=== PATIENT | female | born 1990 | race Hispanic/Latino ===

== ENCOUNTER 2017-05-03 19:47 | Emergency (ER) | payer OTHER ==
[2017-05-03 20:53] LABS: BASOPHILS % (AUTO) 0.4 % (0.0-5.0); HEMATOCRIT 37.2 % (36-48); LYMPHOCYTES % (AUTO) 4.7 % (21.0-51.0); MEAN CORPUSCULAR HGB CONC 32.7 g/dL (32.0-36.0); MEAN CORPUSCULAR VOLUME 79.5 fL (79-99); MONOCYTES % (AUTO) 7.4 % (3.0-13.0); NEUTROPHILS % (AUTO) 87.5 % (40.0-77.0); NUCLEATED RED BLOOD CELLS 0.1 % (0.0-0.19); PLATELET COUNT (AUTO) 310 K/uL (130-400); RED BLOOD CELL COUNT(AUTO) 4.68 MIL/uL (4.00-5.50); RED CELL DISTRIBUTION WIDTH 14.6 % (11.0-15.5); WHITE BLOOD COUNT (AUTO) 11.9 K/uL (4.8-10.8)
[2017-05-03 20:58] LABS: APPEARANCE,URINE Cloudy (CLEAR); BILIRUBIN,URINE Negative (NEGATIVE); COLOR,URINE Yellow (YELLOW); GLUCOSE, URINE (UA) Negative (NEGATIVE); KETONES,URINE Negative (NEGATIVE); LEUKOCYTE ESTERASE ,URINE Large (NEGATIVE); NITRATE,URINE Negative (NEGATIVE); OCCULT BLOOD,URINE Moderate (NEGATIVE); PROTEIN,URINE Trace (NEGATIVE)
[2017-05-03 21:01] LABS: CREATININE 0.8 mg/dL (0.5-1.5); POTASSIUM 3.9 mmol/L (3.5-5.1)
[2017-05-03 21:02] LABS: HCG,QUAL RESULT NEGATIVE (NEGATIVE)
[2017-05-03 21:06] LABS: ALBUMIN 3.7 g/dL (3.5-5.0); BILIRUBIN,TOTAL 0.4 mg/dL (0.2-1.0); TOTAL PROTEIN, SERUM 8.4 g/dL (6.0-8.3)
[2017-05-03] MEDS ORDERED: IBUPROFEN 400 MG TABLET ONE (21:09)
[2017-05-03 21:13] LABS: BACTERIA,URINE Few /HPF (None Seen); MUCUS,URINE Few LPF (None Seen); RBC,URINE 0-1 /HPF (0-1); SQUAMOUS EPITHELIAL CELL,UR Many /LPF (0-2)
[2017-05-03] MEDS ORDERED: CEFTRIAXONE SODIUM 1 GM ONE (22:00)
[2017-05-03] MEDS ORDERED: LIDOCAINE HCL-MPF 1% 2ML VIAL ONE (22:00)
[2017-05-03] MEDS ORDERED: AZITHROMYCIN 250 MG TABLET PO ONE ×2 (22:01→22:08)
[2017-05-06 14:15] LABS: CHLAMYDIA DNA N.A.AMPLIFY Negative (Negative)
== END 2017-05-03 22:35 | disposition home or self-care (01) ==
LOC: EDH 19:47
DX: N10 Acute pyelonephritis (principal); N73.9 Female pelvic inflammatory disease, unspecified; Z87.891 Personal history of nicotine dependence
CPT/HCPCS: 36415; 80053; 81001; 81025; 85025; 87210; 87486; 87797; 87804 ×2; 96372; 99284; J0696; J3490

== ENCOUNTER 2017-05-06 11:03 | Emergency (ER) | payer OTHER | END 2017-05-06 12:04 | disposition home or self-care (01) | LOC: EDH 11:03 | DX: M54.5 Low back pain (principal); Z98.890 Other specified postprocedural states | CPT/HCPCS: 99281 ==

== ENCOUNTER 2017-08-18 18:33 | Emergency (ER) | payer OTHER ==
[2017-08-18] MEDS ORDERED: CEFTRIAXONE SODIUM 500 MG VIAL ONE (19:57)
[2017-08-18] MEDS ORDERED: LIDOCAINE HCL-MPF 1% 2ML VIAL ONE (19:57)
[2017-08-18] MEDS ORDERED: AZITHROMYCIN 250 MG TABLET PO ONE (19:58)
[2017-08-18 20:04] LABS: BASOPHILS % (AUTO) 0.5 % (0.0-5.0); EOSINOPHILS % (AUTO) 1.2 % (0.0-8.0); HEMATOCRIT 34.6 % (36-48); LYMPHOCYTES % (AUTO) 20.4 % (21.0-51.0); MEAN CORPUSCULAR HEMOGLOBIN 26.1 pg (27.0-33.0); MEAN CORPUSCULAR HGB CONC 33.7 g/dL (32.0-36.0); MEAN CORPUSCULAR VOLUME 77.6 fL (79-99); MONOCYTES % (AUTO) 7.6 % (3.0-13.0); NEUTROPHILS % (AUTO) 70.3 % (40.0-77.0); NUCLEATED RED BLOOD CELLS 0.1 % (0.0-0.19); PLATELET COUNT (AUTO) 328 K/uL (130-400); RED BLOOD CELL COUNT(AUTO) 4.46 MIL/uL (4.00-5.50); RED CELL DISTRIBUTION WIDTH 15.3 % (11.0-15.5); WHITE BLOOD COUNT (AUTO) 7.6 K/uL (4.8-10.8)
[2017-08-18 20:17] LABS: CREATININE 0.6 mg/dL (0.5-1.5)
[2017-08-18 20:21] LABS: HCG,QUAL RESULT NEGATIVE (NEGATIVE)
[2017-08-18 20:22] LABS: APPEARANCE,URINE Clear (CLEAR); BILIRUBIN,URINE Negative (NEGATIVE); COLOR,URINE Yellow (YELLOW); GLUCOSE, URINE (UA) Negative (NEGATIVE); KETONES,URINE Negative (NEGATIVE); LEUKOCYTE ESTERASE ,URINE Small (NEGATIVE); NITRATE,URINE Negative (NEGATIVE); OCCULT BLOOD,URINE Negative (NEGATIVE); PH,URINE 6.5 (5.0-8.0); PROTEIN,URINE Negative (NEGATIVE)
[2017-08-18 20:22] LABS: ALBUMIN 3.5 g/dL (3.5-5.0); BILIRUBIN,TOTAL 0.3 mg/dL (0.2-1.0); TOTAL PROTEIN, SERUM 7.5 g/dL (6.0-8.3)
[2017-08-18 20:32] LABS: BACTERIA,URINE None Seen /HPF (None Seen); MUCUS,URINE Few LPF (None Seen); RBC,URINE None Seen /HPF (0-1); TRANSITIONAL EPI CELLS,URINE Few /HPF (None Seen); WBC,URINE 0-1 /HPF (0-1)
== END 2017-08-18 21:47 | disposition home or self-care (01) ==
LOC: EDH 18:33
DX: N89.8 Other specified noninflammatory disorders of vagina (principal); Z90.49 Acquired absence of other specified parts of digestive tract; Z98.890 Other specified postprocedural states
CPT/HCPCS: 36415; 80053; 81001; 81025; 85025; 87486; 87797; 96372; 99284; J0696; J3490

== ENCOUNTER 2018-03-12 09:03 | Emergency (ER) | payer MEDICAID ==
[2018-03-12] MEDS ORDERED: ONDANSETRON HCL 4 MG/2 ML VIAL ONE (09:54)
[2018-03-12] MEDS ORDERED: SODIUM CHLORIDE 0.9% 1000ML 1,000 ML IV ONE (09:54)
[2018-03-12 10:13] LABS: APPEARANCE,URINE Clear (CLEAR); BILIRUBIN,URINE Moderate (NEGATIVE); COLOR,URINE Dark Yellow (YELLOW); GLUCOSE, URINE (UA) Negative (NEGATIVE); KETONES,URINE >=160 mg/dL (NEGATIVE); LEUKOCYTE ESTERASE ,URINE Small (NEGATIVE); NITRATE,URINE Negative (NEGATIVE); OCCULT BLOOD,URINE Nonhemolyzed Trace (NEGATIVE); PH,URINE 6.5 (5.0-8.0); PROTEIN,URINE POS 1+ (NEGATIVE)
[2018-03-12 10:17] LABS: BASOPHILS % (AUTO) 0.2 % (0.0-5.0); EOSINOPHILS % (AUTO) 0.4 % (0.0-8.0); HEMATOCRIT 38.9 % (36-48); LYMPHOCYTES % (AUTO) 11.2 % (21.0-51.0); MEAN CORPUSCULAR HEMOGLOBIN 27.2 pg (27.0-33.0); MEAN CORPUSCULAR HGB CONC 33.3 g/dL (32.0-36.0); MEAN CORPUSCULAR VOLUME 81.7 fL (79-99); MONOCYTES % (AUTO) 6.9 % (3.0-13.0); NEUTROPHILS % (AUTO) 81.3 % (40.0-77.0); PLATELET COUNT (AUTO) 285 K/uL (130-400); RED BLOOD CELL COUNT(AUTO) 4.76 MIL/uL (4.00-5.50); RED CELL DISTRIBUTION WIDTH 15.5 % (11.0-15.5); WHITE BLOOD COUNT (AUTO) 7.5 K/uL (4.8-10.8)
[2018-03-12 10:21] LABS: BACTERIA,URINE Few /HPF (None Seen); MUCUS,URINE Moderate LPF (None Seen); RBC,URINE 0-1 /HPF (0-1); SQUAMOUS EPITHELIAL CELL,UR Few /HPF (0-2); WBC,URINE 0-1 /HPF (0-1)
[2018-03-12 10:22] LABS: AMPHET/METH SCREEN,URINE NEGATIVE (NEGATIVE); BARBITURATE SCREEN, URINE NEGATIVE (NEGATIVE); BENZODIAZEPINES SCREEN,URINE NEGATIVE (NEGATIVE); CANNABINOID SCREEN,URINE NEGATIVE (NEGATIVE); COCAINE SCREEN,URINE NEGATIVE (NEGATIVE); OPIATE SCREEN,URINE NEGATIVE (NEGATIVE); PHENCYCLIDINE SCREEN,URINE NEGATIVE (NEGATIVE)
[2018-03-12 10:23] LABS: CREATININE 0.6 mg/dL (0.5-1.5); POTASSIUM 3.3 mmol/L (3.5-5.1)
[2018-03-12 10:49] LABS: ALBUMIN 3.3 g/dL (3.5-5.0); BILIRUBIN,DIRECT 0.1 mg/dL (0.0-0.3); BILIRUBIN,TOTAL 0.5 mg/dL (0.2-1.0); TOTAL PROTEIN, SERUM 7.9 g/dL (6.0-8.3)
== END 2018-03-12 12:07 | disposition home or self-care (01) ==
LOC: EDH 09:03
DX: O20.0 Threatened abortion (principal); O21.8 Other vomiting complicating pregnancy; Z79.899 Other long term (current) drug therapy; Z90.49 Acquired absence of other specified parts of digestive tract; Z98.890 Other specified postprocedural states; Z3A.15 15 weeks gestation of pregnancy
CPT/HCPCS: 36415; 80048; 80076; 80305; 81001; 83690; 84702; 85025; 96361; 96374; 99285; J2405; J7030

== ENCOUNTER 2022-08-30 08:04 | Emergency (ER) | payer MEDICAID, OTHER ==
[~2022-08-30] VITALS: Ht 152.4 cm; Wt 90.7 kg
[2022-08-30 08:40] LABS: BASOPHILS % (AUTO) 0.7 % (0.0-5.0); EOSINOPHILS % (AUTO) 1.4 % (0.0-8.0); HEMATOCRIT 35.4 % (36-48); MEAN CORPUSCULAR HEMOGLOBIN 24.4 pg (27.0-33.0); MEAN CORPUSCULAR HGB CONC 30.8 g/dL (32.0-36.0); MEAN CORPUSCULAR VOLUME 79.2 fL (79-99); NEUTROPHILS % (AUTO) 71.7 % (40.0-77.0); PLATELET COUNT (AUTO) 338 K/uL (130-400); RED BLOOD CELL COUNT(AUTO) 4.47 MIL/uL (4.00-5.50); WHITE BLOOD COUNT (AUTO) 5.8 K/uL (4.8-10.8)
[2022-08-30 08:47] VITALS: BP 129/72
[2022-08-30 09:09] LABS: APPEARANCE,URINE CLEAR (CLEAR); BILIRUBIN,URINE NEGATIVE (NEGATIVE); COLOR,URINE LIGHT-YELLOW (YELLOW); GLUCOSE, URINE (UA) NEGATIVE (NEGATIVE); KETONES,URINE NEGATIVE (NEGATIVE); LEUKOCYTE ESTERASE ,URINE NEGATIVE Leu/uL (NEGATIVE); NITRATE,URINE NEGATIVE (NEGATIVE); OCCULT BLOOD,URINE NEGATIVE (NEGATIVE); PROTEIN,URINE NEGATIVE (NEGATIVE); UROBILINOGEN,URINE 0.2 mg/dL (0.2-1.0)
[2022-08-30 09:14] LABS: HCG,QUALITATIVE URINE NEGATIVE (NEGATIVE)
[2022-08-30 09:20] LABS: ALBUMIN 3.7 g/dL (3.5-5.0); CREATININE 0.6 mg/dL (0.5-1.5)
[2022-08-30] MEDS ORDERED: FERR15DR PO (09:44)
[2022-08-30 09:48] LABS: THYROID STIMULATING HORMONE 1.63 uIU/mL (0.36-3.74)
== END 2022-08-30 10:12 | disposition home or self-care (01) ==
LOC: EDH 08:04
DX: R53.1 Weakness (principal); D64.9 Anemia, unspecified; Z20.822 Contact with and (suspected) exposure to COVID-19; Z90.49 Acquired absence of other specified parts of digestive tract; Z98.890 Other specified postprocedural states
CPT/HCPCS: 99283; 87635; 84443; 80053; 85025; 87804 ×2; 82948; 82010; 81003; 81025; 36415; C9803

== ENCOUNTER 2023-02-19 09:48 | Emergency (ER) | payer OTHER ==
[~2023-02-19] VITALS: Ht 152.4 cm; Wt 113.4 kg
[~2023-02-19 09:48] MED LIST: FERR15DR PO
[2023-02-19 09:52] VITALS: BP 134/79; PULSE 78; RESP 16; O2SAT 100
[2023-02-19] MEDS ORDERED: ROPI3TAB21 PO (10:19)
[2023-02-19 10:28] LABS: BASOPHILS # (AUTO) 0.05 K/uL (0.00-0.20); BASOPHILS % (AUTO) 0.8 % (0.0-5.0); EOSINOPHILS # (AUTO) 0.07 K/uL (0.00-0.70); EOSINOPHILS % (AUTO) 1.2 % (0.0-8.0); HEMATOCRIT 35.9 % (36-48); IMMATURE GRANULOCYTE ABSOLUTE 0.01 K/uL (0-1); LYMPHOCYTES # (AUTO) 1.3 K/uL (1.0-4.8); LYMPHOCYTES % (AUTO) 21.2 % (21.0-51.0); MEAN CORPUSCULAR HEMOGLOBIN 25.2 pg (27.0-33.0); MEAN CORPUSCULAR HGB CONC 31.2 g/dL (32.0-36.0); MEAN CORPUSCULAR VOLUME 80.9 fL (79-99); MONOCYTES # (AUTO) 0.4 K/uL (0.1-1.0); MONOCYTES % (AUTO) 6.1 % (3.0-13.0); NEUTROPHILS # (AUTO) 4.3 K/uL (1.8-7.7); NEUTROPHILS % (AUTO) 70.5 % (40.0-77.0); PLATELET COUNT (AUTO) 359 K/uL (130-400); RED BLOOD CELL COUNT(AUTO) 4.44 MIL/uL (4.00-5.50); RED CELL DISTRIBUTION WIDTH 14.2 % (11.0-15.5)
[2023-02-19 10:35] LABS: CREATININE 0.6 mg/dL (0.5-1.5)
[2023-02-19] MEDS ORDERED: IBUPROFEN 800 MG TAB PO PRN (11:00)
[2023-02-19] MEDS ORDERED: ROPINIROLE HCL 1 MG TABLET ONE (11:16)
[2023-02-19] MEDS ORDERED: FERS325 PO (11:52)
[2023-02-19] MEDS ORDERED: IBUP-2077 PO (11:52)
[2023-02-19] MEDS ORDERED: FERR325T22 PO (11:52)
[2023-02-19] MEDS ORDERED: ROPINIROLE HCL 1 MG TABLET PO SCH (21:00)
[2023-02-20] MEDS ORDERED: FERROUS SULFATE 325 MG TABLET.DR PO SCH (09:00)
== END 2023-02-19 12:02 | disposition home or self-care (01) ==
LOC: EDH 09:48
DX: G57.11 Meralgia paresthetica, right lower limb (principal); G25.81 Restless legs syndrome; D50.9 Iron deficiency anemia, unspecified; Z79.899 Other long term (current) drug therapy; Z90.49 Acquired absence of other specified parts of digestive tract; Z98.890 Other specified postprocedural states
CPT/HCPCS: 36415; 80048; 85025

== ENCOUNTER 2023-06-11 10:15 | Emergency (ER) | payer OTHER ==
[~2023-06-11] VITALS: Ht 152.4 cm; Wt 117.9 kg
[~2023-06-11 10:15] MED LIST changes: +FERR325T22 PO; +FERS325 PO; +IBUP-2077 PO; +ROPI3TAB21 PO
[2023-06-11 10:41] VITALS: BP 139/61; PULSE 84; RESP 18; O2SAT 100
[2023-06-11 11:19] LABS: INFLUENZA TYPE A Negative For Type A (NEGATIVE); INFLUENZA TYPE B Negative For Type B (NEGATIVE); SARS-CoV-2, RNA, NAAT NEGATIVE SARS CoV-2 (NEGATIVE)
[2023-06-11 11:26] LABS: RAPID GROUP A STREP positive (NEGATIVE)
[2023-06-11] MEDS ORDERED: AMOX500C2 PO (11:33)
[2023-06-11] MEDS: DEXAMETHASONE SOD PHOSPHATE 4 MG/ML 1ML VIAL IM ONE (11:57)
[2023-06-11] MEDS: AMOXICILLIN 500 MG CAPSULE PO ONE (11:58)
[2023-06-11] MEDS: KETOROLAC 30MG VIAL (30MG/ML) IM ONE (11:58)
== END 2023-06-11 12:19 | disposition home or self-care (01) ==
LOC: EDH 10:15
DX: J02.0 Streptococcal pharyngitis (principal); R51.9 Headache, unspecified; R50.9 Fever, unspecified; R07.0 Pain in throat; Z20.822 Contact with and (suspected) exposure to COVID-19; Z79.899 Other long term (current) drug therapy; Z90.49 Acquired absence of other specified parts of digestive tract; Z98.890 Other specified postprocedural states
CPT/HCPCS: 99284; 87635; 87880; 87804 ×2; 96372 ×2; J1100; J1885

== ENCOUNTER 2023-07-31 17:58 | Emergency (ER) | payer OTHER ==
[~2023-07-31] VITALS: Ht 152.4 cm; Wt 113.4 kg
[~2023-07-31 17:58] MED LIST changes: +AMOX500C2 PO
[2023-07-31 18:33] LABS: APPEARANCE,URINE CLOUDY (CLEAR); BILIRUBIN,URINE NEGATIVE (NEGATIVE); COLOR,URINE LIGHT-YELLOW (YELLOW); GLUCOSE, URINE (UA) NEGATIVE (NEGATIVE); KETONES,URINE NEGATIVE (NEGATIVE); LEUKOCYTE ESTERASE ,URINE NEGATIVE Leu/uL (NEGATIVE); NITRATE,URINE NEGATIVE (NEGATIVE); OCCULT BLOOD,URINE NEGATIVE (NEGATIVE); PH,URINE 5.5 (5.0-8.0); PROTEIN,URINE NEGATIVE (NEGATIVE); UROBILINOGEN,URINE 0.2 mg/dL (0.2-1.0)
[2023-07-31 18:47] LABS: ADD UA MICROSCOPIC YES
[2023-07-31 18:52] LABS: SQUAMOUS EPITHELIAL CELL,UR MANY /HPF (0-2)
[2023-07-31 18:53] LABS: BASOPHILS # (AUTO) 0.06 K/uL (0.00-0.20); BASOPHILS % (AUTO) 0.7 % (0.0-5.0); EOSINOPHILS # (AUTO) 0.18 K/uL (0.00-0.70); EOSINOPHILS % (AUTO) 2.1 % (0.0-8.0); IMMATURE GRANULOCYTE ABSOLUTE 0.03 K/uL (0-1); LYMPHOCYTES # (AUTO) 1.9 K/uL (1.0-4.8); MEAN CORPUSCULAR HEMOGLOBIN 25.4 pg (27.0-33.0); MEAN CORPUSCULAR HGB CONC 31.5 g/dL (32.0-36.0); MEAN CORPUSCULAR VOLUME 80.6 fL (79-99); MONOCYTES # (AUTO) 0.5 K/uL (0.1-1.0); MONOCYTES % (AUTO) 6.2 % (3.0-13.0); NEUTROPHILS # (AUTO) 5.9 K/uL (1.8-7.7); NEUTROPHILS % (AUTO) 68.6 % (40.0-77.0); PLATELET COUNT (AUTO) 385 K/uL (130-400); RED BLOOD CELL COUNT(AUTO) 4.22 MIL/uL (4.00-5.50); RED CELL DISTRIBUTION WIDTH 14.8 % (11.0-15.5); WHITE BLOOD COUNT (AUTO) 8.5 K/uL (4.8-10.8)
[2023-07-31 19:05] LABS: CREATININE 0.6 mg/dL (0.5-1.0); POTASSIUM 3.9 mmol/L (3.5-5.1)
[2023-07-31 19:11] LABS: ALBUMIN 3.3 g/dL (3.5-5.0); BILIRUBIN,TOTAL 0.3 mg/dL (0.2-1.0); TOTAL PROTEIN, SERUM 7.2 g/dL (6.0-8.3)
[2023-07-31 19:42] VITALS: BP 127/74; PULSE 70; RESP 18; O2SAT 98
[2023-07-31 19:42] LABS: INR <= 0.93 (0.85-1.15); PROTHROMBIN TIME 10.3 SEC (9.6-11.6)
[2023-07-31 19:56] LABS: B-TYPE NATRIURETIC PEPTIDE 9 pg/mL (0-100)
[2023-07-31] MEDS: ASPIRIN 325MG TAB PO ONE (20:08)
== END 2023-07-31 22:19 | disposition home or self-care (01) ==
LOC: EDH 17:58
DX: R07.89 Other chest pain (principal); F41.9 Anxiety disorder, unspecified; Z90.49 Acquired absence of other specified parts of digestive tract; Z79.899 Other long term (current) drug therapy; Z98.890 Other specified postprocedural states
CPT/HCPCS: 36415; 71045; 80053; 81001; 83880; 84484; 85025; 85610; 93005

== ENCOUNTER 2025-02-21 08:37 | Emergency (ER) | payer OTHER ==
[~2025-02-21] VITALS: Ht 152.4 cm; Wt 115.7 kg
[~2025-02-21 08:37] MED LIST changes: +KETO10 PO; +MACR100 PO
--- NOTE | 2025-02-21 11:01 | HMCIMG ---
EXAM: CR right Knee, 3 View. CLINICAL HISTORY: pain, injury COMPARISON: None provided. FINDINGS: BONES: No acute fracture or aggressive appearing osseous lesion. JOINTS: The joint spaces show no significant degenerative disease. There is no joint effusion appreciated. SOFT TISSUES: The soft tissues are unremarkable. IMPRESSION: No acute osseous pathology evident. /[place]
--- NOTE | 2025-02-21 11:08 | HMCIMG ---
EXAM: CR right Hip including AP pelvis, 3 View. CLINICAL HISTORY: pain, injury COMPARISON: None provided. FINDINGS: BONES: There are some chronic congenital changes with flattening of the right femur head and shortening of the neck. Shallow acetabulum on the right. There is a sclerotic line through the base of the right femur neck. Nondisplaced fracture not entirely excluded. CT is recommended. JOINTS: No dislocation. The joint spaces are otherwise normal. SOFT TISSUES: The soft tissues are unremarkable. IMPRESSION: There is a sclerotic line through the base of the right femur neck. Nondisplaced fracture not entirely excluded. CT is recommended. 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 Shallow acetabulum angle. /[place]
--- NOTE | 2025-02-21 11:08 | HMCIMG ---
EXAM: CR right Femur, 4 View. CLINICAL HISTORY: pain, injury COMPARISON: None provided. FINDINGS: BONES: There are some chronic congenital changes with flattening of the right femur head and shortening of the neck. Shallow acetabulum on the right. There is a sclerotic line through the base of the right femur neck. Nondisplaced fracture not entirely excluded. CT is recommended. JOINTS: No dislocation. SOFT TISSUES: The soft tissues are unremarkable. IMPRESSION: There is a sclerotic line through the base of the right femur neck. Nondisplaced fracture not entirely excluded. CT is recommended. 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 Shallow acetabulum angle. /[place]
--- NOTE | 2025-02-21 11:31 | HMCIMG ---
EXAM: US for Deep Venous Thrombosis, right Lower Extremity. CLINICAL HISTORY: Leg Pain and Swelling TECHNIQUE: Real-time ultrasound scan of the veins of the right lower extremity with color Doppler flow, spectral waveform analysis and compression. COMPARISON: None provided. FINDINGS: DEEP VEINS: The common femoral, superficial femoral, and popliteal veins are echolucent and compressible. There is normal color Doppler flow throughout. The visualized calf veins appear patent. SOFT TISSUES: No popliteal fossa cyst or other abnormalities. IMPRESSION: No deep venous thrombosis evident on right lower extremity examination. /[place]
[2025-02-21 12:30] VITALS: BP 107/52; PULSE 67; RESP 18; TEMP 98.4; O2SAT 100
--- NOTE | 2025-02-21 16:12 | HMCIMG ---
EXAM: CT Pelvis without IV contrast CLINICAL HISTORY: r x-ray abnormality TECHNIQUE: Axial computed tomography images of the pelvis without intravenous contrast. CONTRAST: without intravenous contrast. COMPARISON: None provided. FINDINGS: APPENDIX: No evidence of acute appendicitis on CT examination. PERITONEUM: No free fluid. No free air. LYMPH NODES: No lymphadenopathy is evident. REPRODUCTIVE: Unremarkable as visualized. VASCULATURE: No evidence of abdominal aortic aneurysm. BONES: Visualized section of lumbar spine shows facetal arthropathy and degenerative changes. Lumbosacral transitional vertebra is seen with left unilateral partial fusion. Mild subtle flattening of right femoral head noted with short neck, likely chronic congenital change along right femoral head. ABDOMINAL WALL: Scar is seen along umbilicus with a defect of approximately 1.6 cm through which mesenteric fat is herniating, representing a small umbilical hernia. Another defect of 4 cm is seen through anterior rectus sheath in infraumbilical region with herniation of bowel loop, surrounding mesentery, and omentum, and focal soft tissue swelling along left rectus muscle likely representing rectus sheath hematoma. Fatty atrophy of bilateral rectus muscle is noted. IMPRESSION: 1. Small umbilical hernia with 1.6 cm defect containing herniated mesenteric fat. 2. Infraumbilical ventral hernia with 4 cm defect containing herniated bowel loop, mesentery, and omentum. 3. Probable rectus sheath hematoma with focal soft tissue swelling along left rectus muscle. 4. Fatty atrophy of bilateral rectus muscles. 5. Lumbosacral transitional vertebra with left unilateral partial fusion. 6. Mild flattening of right femoral head with short neck, likely chronic congenital change. 7. Lumbar facet arthropathy and degenerative changes. 8. No acute osseous abnormality. /[place]
[2025-02-21] MEDS: HYDROcodone/APAP 5/325 1 TAB TABLET PO ONE (16:37)
[2025-02-21 16:38] VITALS: TEMP 98.4
[2025-02-21] MEDS ORDERED: MELO-108 PO (16:38)
--- NOTE | 2025-02-21 16:39 | ERN ---
General Chief Complaint: Lower Extremity Pain/Injury Stated Complaint: RT LEG PAIN X 2 WEEKS Time Seen by MD: 08:41 History of Present Illness Initial Comments 34-year-old female obese with right inner thigh pain. Unprovoked. Has been present for about a week or two now. It does increase with movement. She denies any trauma. Pain is mostly located from her pelvis down to her knee in the inner thigh. No skin texture changes. No systemic illness. Allergies: Coded Allergies: No Known Allergies (Unverified Allergy, Unknown, 08/30/22) Home Meds Active Scripts Meloxicam (Meloxicam) 15 Mg Tablet, 15 MG PO DAILY PRN for PAIN for 10 Days, #10 TAB Prov:DAPHNEY WASHINGTON DO 02/21/25 Nitrofurantoin/Nitrofuran Mac (Macrobid) 100 Mg Cap, 100 MG PO BID for 7 Days, #14 CAP Prov:TONNY GOMEZ I PAC 10/22/23 Ketorolac Tromethamine (Toradol) 10 Mg Tab, 10 MG PO TIDP PRN for PAIN, #15 TAB Prov:TONNY GOMEZ I PAC 10/22/23 Amoxicillin (Amoxicillin) 500 Mg Capsule, 500 MG PO BID for 10 Days, #20 CAP 0 Refills Prov:ABUNDIO REYES [employer] 06/11/23 Ferrous Sulfate (Ferrous Sulfate) 325 Mg (65 Mg Iron) Tablet, 325 MG PO DAILY, #30 TAB Prov:ROSALIE BEDOYA MD 02/19/23 Ferrous Sulfate (Ferrous Sulfate) 325 Mg (65 Mg Iron) Ectab, 325 MG PO DAILY, #30 TAB.EC Prov:ROSALIE BEDOYA MD 02/19/23 Ibuprofen (Ibuprofen 800 mg Tab) 800 Mg Tab, 600 MG PO Q6HPRN PRN for PAIN, #60 TAB Prov:ROSALIE BEDOYA MD 02/19/23 Ropinirole HCl (Ropinirole HCl) 3 Mg Tablet, 3 MG PO PM, #30 TAB Prov:ROSALIE BEDOYA MD 02/19/23 Ferrous Sulfate (Niranjan-in-Yen) 15 Mg/1 Ml Drops, 15 MG PO DAILY for anemia for 30 Days, #30 DROP Prov:ELEONORA SANTO MD 08/30/22 Past Medical History Past Medical History: No Pertinent History Past Surgical History: Hysterectomy, Cholecystectomy, Surgical History Other: BILAT HIP SX Social History Social History: Negative Female( History) : 4 Para: 3 Aborts: 1 ROS Dictation CONSTITUTIONAL: No chills, no fever, no weakness, no diaphoresis, no malaise. HEAD/FACE: No signs of trauma. EENT: No eye pain, no blurred vision, no tearing, no double vision, no ear pain, no ear discharge, no nose pain, no nasal congestion, no throat pain, no throat swelling, no mouth pain. RESPIRATORY: No cough, no orthopnea, no SOB, no stridor, no wheezing. CARDIOVASCULAR: No chest pain, no edema, no palpitations, no syncope. GASTROINTESTINAL/ABDOMINAL: No abdominal pain, no constipation, no diarrhea, no nausea, no vomiting. GENITOURINARY: No abnormal discharge, no dysuria, no frequent urination, no hematuria. No complaints of pain in the genitals. MUSCULOSKELETAL: Right leg pain INTEGUMENTARY: No change in color, no change in hair/nails, no dryness, no lesion, no lumps, no rash. NEUROLOGICAL/PSYCH: No anxiety, not depressed, no emotional problem, no headache, no numbness, no pre-existing deficit, no history of seizures, no tremors, no weakness. HEMATOLOGIC/LYMPHATIC: Not anemic, no history of blood clots, no apparent bleeding, no bruising, glands not swollen. All Systems Negative, Except as Noted. Physical Exam Physical Exam Dictation VITAL SIGNS: Reviewed. GENERAL APPEARANCE: Alert, oriented x3, no acute distress, obese. HEAD AND FACE: Non-traumatic. EYES: PERRL, pink conjunctivas, eyelid no trauma, anterior chamber clear. EARS: Pinnas intact and no signs of trauma or erythema. Ear canals clear and no discharge. TMs no erythema. NOSE: No discharge, no bleeding. OROPHARYNX: Mouth normal, teeth no caries, tongue pink. Pharynx clear, no erythema. Tonsils no exudates, no abscesses noted. Mucous membrane moist. NECK: Supple, non-tender, no thyromegaly, no masses, no JVD, no bruits. BREAST: Deferred. CHEST: No tenderness, no crepitus, no paradoxical movement, no retractions. LUNGS: Clear, well-ventilated, symmetric, no rales, no wheezing, no rhonchi, no stridor, good breath sounds bilaterally. HEART: Regular rate, regular rhythm, no murmur, no gallops. VASCULAR: No peripheral edema. ABDOMEN: Soft, positive bowel sounds, nondistended, no guarding, nontender, no rebound, no masses no hepatomegaly, no splenomegaly, no Foreman's sign, no hernias. RECTAL: Deferred. GENITAL: Deferred. NEUROLOGICAL: Normal speech, gross motor function intact, gross sensory function intact. MUSCULOSKELETAL: Neck nontender, full range of motion, back nontender, full range of motion. EXTREMITIES: Nontender, full range of motion. SKIN: Color pink, dry, no turgor, no rash, no lacerations, no abrasions, no contusions. LYMPHATICS: Deferred. MDM CC: Right leg pain Historian: Patient Comorbidities: She had a hip abnormality as a child, obesity Limitations: Uninsured Differential diagnosis: Soft tissue injury, bony injury, MSK pain, blood clot, other Vital signs are stable Clinical exam shows neurovascularly intact leg. Doppler studies unremarkable. Knee x-ray, fever x-ray unremarkable Hip x-ray does show possible abnormality in the right hip, radiologist recommends CT scan there was a very long delay in getting the CT imaging done here in the ER as well as the read. CT scan does show small umbilical hernia, also infraumbilical ventral hernia. There is a rectus sheath hematoma, otherwise no acute abnormalities. Patient received ibuprofen and [place] in the ER for pain Plan will be to discharge with the NSAIDs likely soft tissue/MSK pain. ED Course Orders Procedure Category Date Status Time Us Venous Doppler US 02/21/25 Resulted Unilateral 10:03 Hip Unilat 2-3vw Right RAD 02/21/25 Resulted 10:03 Femur 2vw Right RAD 02/21/25 Resulted 10:03 Knee 3vws Rt RAD 02/21/25 Resulted 10:03 Ct Pelvis W/O Contrast CT 02/21/25 Resulted 11:32 Hydrocodone/Apap PHA 02/21/25 Complete 5/325 ([place] 5/325mg) 16:30 Ibuprofen 600 Mg PHA 02/21/25 Complete Tablet (Motrin) 16:30 Current Medications Medications (Trade) Dose Ordered Sig/[place]man Route PRN Reason Start Time Stop Time Status Last Admin Dose Admin Acetaminophen/ Hydrocodone Bitart (NORco 5/325MG) 1 tab ONCE ONCE PO 02/21/25 16:30 02/21/25 16:31 DC Ibuprofen (moTRIN) 600 mg ONCE ONCE PO 02/21/25 16:30 02/21/25 16:31 DC Vital Signs Date Time Temp Pulse Resp B/P (MAP) Pulse Ox O2 Delivery O2 Flow Rate FiO2 02/21/25 12:30 98.4 67 18 107/52 100 Room Air* 0 21 02/21/25 09:00 98.4 69 18 143/73 100 Room Air* 0 21 02/21/25 08:40 98.4 69 16 143/73 100 Room Air 0 DX & DISP Disposition: Discharge Departure Impression: Primary Impression: Musculoskeletal leg pain Condition: Stable Scripts Meloxicam (Meloxicam) 15 Mg Tablet 15 MG PO DAILY PRN for PAIN for 10 Days, #10 TAB Prov: DAPHNEY WASHINGTON DO 02/21/25 Additional Instructions: There are no major findings on your workup here today. As we discussed, your symptoms are most consistent with musculoskeletal injury or pain. The ultrasound is unremarkable. There are no signs of blood clots. The x-rays are unremarkable. The CT scan does show some small hernias in your abdomen which are unlikely related to your symptoms. People often live with small hernias and they did not need to be addressed unless they cause problems. None type Zosyn CR I have prescribed meloxicam, which is a nonsteroidal anti-inflammatory. You can take this once per day as needed for pain. You can also apply ice to the affected area. I recommend that you follow up with the primary doctor in one week for re- evaluation if your symptoms continue. Referrals: SELF,REFERRAL (PCP) DAPHNEY WASHINGTON DO Feb 21, 2025 16:38
== END 2025-02-21 17:24 | disposition home or self-care (01) ==
LOC: EDH 08:37
DX: M79.651 Pain in right thigh (principal); E66.9 Obesity, unspecified; Z68.42 Body mass index [BMI] 45.0-49.9, adult; Z90.49 Acquired absence of other specified parts of digestive tract; Z90.710 Acquired absence of both cervix and uterus; Z98.890 Other specified postprocedural states
CPT/HCPCS: 72192; 73502; 73552; 73562; 93971; 99284